=== PATIENT | male | born 1940 | race Caucasian/White ===

== ENCOUNTER 2020-01-09 18:13 | Emergency (ER) | payer MEDICARE, MEDICAID ==
[2020-01-09 19:23] VITALS: BP 122/51; PULSE 72
[2020-01-09] MEDS ORDERED: Tetracaine HCl/PF 0.5% 4 ML Bottle EYELF ONE (19:47)
[2020-01-09] MEDS ORDERED: Fluorescein 1 MG Ophth Strip EYELF ONE (19:47)
--- NOTE | 2020-01-09 19:47 | EDM.PDOC ---
ED HPI GENERAL MEDICAL PROBLEM - General Chief Complaint: Eye Problems Stated Complaint: PIECE OF STEEL IN NOSE AREA Time Seen by Provider: 01/09/20 19:57 Source of Information: Reports: Patient History Limitations: Reports: No Limitations - History of Present Illness INITIAL COMMENTS - FREE TEXT/NARRATIVE: 79 yo who presents with concerns of foreign body imbedded in the skin near left eye He was splitting wood with an ax, felt something strike his face just medial to the left eye. Still has foreign body sensation here. Some bleeding that has now stopped No FB sensation within the actual eye - Related Data Allergies Allergy/AdvReac Type Severity Reaction Status Date / Time lisinopril Allergy Severe Airway Verified 01/09/20 19:22 Tightness Home Meds: Home Meds Venlafaxine HCl [Venlafaxine ER] 150 mg PO DAILY 04/15/15 [History] amLODIPine [Norvasc] 5 mg PO DAILY #30 tab 04/16/15 [Rx] Amitriptyline [Elavil] 10 mg PO DAILY 07/04/19 [History] Colchicine [Colcrys] 0.6 mg PO BID #20 tablet 07/04/19 [Rx] OLANZapine [Olanzapine] 10 mg PO ASDIRECTED 07/04/19 [History] Prochlorperazine [Compazine] 10 mg PO DAILY 07/04/19 [History] Doxazosin [Doxazosin Mesylate] 4 mg PO DAILY 01/09/20 [History] Spironolactone [Aldactone] 25 mg PO DAILY 01/09/20 [History] Topotecan HCl [Hycamtin] 1 mg PO DAILY 01/09/20 [History] Past Medical History Cardiovascular History: Reports: Hypertension Respiratory History: Reports: COPD, Other (See Below) Other Respiratory History: lung cancer Musculoskeletal History: Reports: Back Pain, Chronic, Fracture Oncologic (Cancer) History: Reports: Lung - Past Surgical History GI Surgical History: Reports: Colonoscopy Musculoskeletal Surgical History: Reports: Shoulder Surgery Other Musculoskeletal Surgeries/Procedures:: BACK SURGERY Social & Family History - Tobacco Use Smoking Status *Q: Current Every Day Smoker Years of Tobacco use: 50 Packs/Tins Daily: 1 - Caffeine Use Caffeine Use: Reports: Coffee - Recreational Drug Use Recreational Drug Use: No ED ROS GENERAL - Review of Systems Review Of Systems: See Below Constitutional: Reports: No Symptoms HEENT: Reports: No Symptoms Respiratory: Reports: No Symptoms Cardiovascular: Reports: No Symptoms Endocrine: Reports: No Symptoms GI/Abdominal: Reports: No Symptoms : Reports: No Symptoms Musculoskeletal: Reports: No Symptoms Skin: Reports: Other (lodges foreign body) Neurological: Reports: No Symptoms Psychiatric: Reports: No Symptoms Hematologic/Lymphatic: Reports: No Symptoms Immunologic: Reports: No Symptoms ED EXAM GENERAL W FULL EYE - Physical Exam Exam: See Below Exam Limited By: No Limitations General Appearance: Alert, No Apparent Distress Eye Exam: Bilateral Eye: Foreign Body Eyelids: Bilateral: Normal Appearance Conjunctiva & Sclera: Bilateral: Normal Appearance Extraocular Movements: Bilateral: Intact Comments: small superior superficial abrasion medial to the left eye No visible foreign body Ears: Normal External Exam Nose: Normal Inspection Throat/Mouth: Normal Inspection Head: Atraumatic Neck: Normal Inspection Respiratory/Chest: No Respiratory Distress Cardiovascular: Regular Rate, Rhythm GI/Abdominal: No Distention Back Exam: Normal Inspection Extremities: Normal Inspection Neurological: Alert, Oriented Psychiatric: Normal Affect, Normal Mood Skin Exam: Warm, Dry ED EYE w/ Add Procedure - Additional/Other Procedure(s) Other (Free Text) Procedure(s) [Text1]: Laceration repair: Medial to left eye, < 0.5 cm laceration Anesthetized with lidocaine Metallic FB removed Would explored Irrigated with sterile NS Single 5-0 nylon suture No complications Course - Vital Signs Last Recorded V/S: Last Vital Signs Temp 36.2 C 01/09/20 19:17 Pulse 72 01/09/20 19:17 Resp 16 01/09/20 19:17 BP 122/51 L 01/09/20 19:17 Pulse Ox 95 01/09/20 19:17 - Orders/Labs/Meds Meds: Medications Discontinued Medications Generic Name Dose Route Start Last Admin Trade Name Freq PRN Reason Stop Dose Admin Fluorescein Sodium 1 mg 01/09/20 19:47 Ful-Kaylin EYELF 01/09/20 19:48 ONETIME ONE Lidocaine HCl 5 ml 01/09/20 19:56 01/09/20 20:15 Xylocaine-Mpf 1% INJECT 01/09/20 19:57 5 ml ONETIME ONE Administration Tetracaine HCl 1 ml 01/09/20 19:47 Tetracaine 0.5% Steri-Unit Allie EYELF 01/09/20 19:48 ASDIRECTED ONE - Re-Assessments/Exams Free Text/Narrative Re-Assessment/Exam: 79 yo presents with concerns of FB medial to the left eye Nothing visible on gross exam Continues to have FB sensation Very sensitive to exploration With anesthetize for better exam 01/09/20 20:02 Free Text/Narrative Re-Assessment/Exam: Upon exam with local anesthesia found to have metallic foreign body Removed Irrigated with sterile saline Single suture placed Tdap up to date Discussed close following for infection, as we need to be vigilant for any periorbital involvement if this develops Will be seen end of week for suture removal 01/09/20 20:38 Departure - Departure Time of Disposition: 20:41 Disposition: Home, Self-Care 01 Clinical Impression: Foreign body, Laceration - Discharge Information Instructions: Skin Foreign Body Referrals: Prem Encinas NP [Primary Care Provider] - Forms: ED Department Discharge Additional Instructions: As discussed, please follow the laceration site for signs of infection: redness , discharge, increasing pain (especially with eye movement) See a physician immediately if these develop See a doctor or or thursday for suture removal Sepsis Event Note - Evaluation Sepsis Screening Result: No Definite Risk - Focused Exam Vital Signs: Vital Signs Temp Pulse Resp BP Pulse Ox 01/09/20 19:17 36.2 C 72 16 122/51 L 95 Date Exam was Performed: 01/09/20 Time Exam was Performed: 20:42
== END 2020-01-09 20:49 | disposition home or self-care (01) ==
LOC: JP.ED 18:13
DX: T15.92XA Foreign body on external eye, part unspecified, left eye, initial encounter (principal); S05.32XA Ocular laceration without prolapse or loss of intraocular tissue, left eye, initial encounter; I10 Essential (primary) hypertension; J44.9 Chronic obstructive pulmonary disease, unspecified; F17.210 Nicotine dependence, cigarettes, uncomplicated; Z79.899 Other long term (current) drug therapy; Z88.8 Allergy status to other drugs, medicaments and biological substances; X58.XXXA Exposure to other specified factors, initial encounter
CPT/HCPCS: 12011; 12051; 99282; 99283; J2001